=== PATIENT | female | born 1955 | race Caucasian/White ===

== ENCOUNTER 2018-05-01 10:51 | Emergency (ER) | payer BC ==
--- NOTE | 2018-05-01 11:37 | UC ---
Skin Complaint HPI - HPI Summary HPI Summary: Patient presents with one week onset burning sensation of her left side, it originated on her back and then began to radiate to her front. She states 2 days ago she developed a red, raised vesicular rash that are in circular clusters. She states pain was well controlled with Advil. - History of Current Complaint Chief Complaint: [facility] Time Seen by Provider: 05/01/18 11:21 Stated Complaint: RASH AND MID BACK PAIN Hx Obtained From: Patient ?: No Onset/Duration: Gradual Onset, Lasting Days Skin Exposure Onset/Duration: Days Ago Onset Severity: Moderate Current Severity: Mild Pain Intensity: 3 Location: Discrete Character: Redness, Raised, Painful Aggravating Factor(s): Touch Alleviating Factor(s): OTC Meds Associated Signs & Symptoms: Positive: Rash - Allergy/Home Medications Allergies/Adverse Reactions: Allergies Allergy/AdvReac Type Severity Reaction Status Date / Time No Known Allergies Allergy Verified 05/01/18 11:02 Home Medications: Home Medications Misc Supplements 05/01/18 [History] Review of Systems Constitutional: Negative Skin: Rash Eyes: Negative ENT: Negative Respiratory: Negative Cardiovascular: Negative Gastrointestinal: Negative Genitourinary: Negative Motor: Negative Neurovascular: Negative Musculoskeletal: Negative Neurological: Negative Psychological: Negative Is Patient Immunocompromised?: No All Other Systems Reviewed And Are Negative: Yes PMH/Surg Hx/FS Hx/Imm Hx Previously Healthy: Yes - Surgical History Surgical History: Yes Surgery Procedure, Year, and Place: tubal ligation - Family History Known Family History: Positive: Hypertension - Social History Occupation: Employed Full-time Lives: With Family Alcohol Use: Occasionally Substance Use Type: None Smoking Status (MU): Current Every Day Smoker Amount Used/How Often: 1/2 ppd Physical Exam Triage Information Reviewed: Yes Appearance: Well-Appearing Vital Signs: Initial Vital Signs Temp 98 F 05/01/18 10:56 Pulse 96 05/01/18 10:56 Resp 18 05/01/18 10:56 BP 160/101 05/01/18 10:56 Pulse Ox 99 05/01/18 10:56 Eye Exam: Normal ENT Exam: Normal Neck exam: Normal Neck: Positive: 1 Respiratory Exam: Normal Cardiovascular Exam: Normal Musculoskeletal Exam: Normal Neurological Exam: Normal Psychological Exam: Normal Skin: Positive: rashes - vesicular rash on left side with dematomal pattern, localized well defined red raised vesicles with well defined borders. Course/Dx - Course Course Of Treatment: Patient presents with complaints of painful rash on her left side x 5-7 days. 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 I did however RX Acyclovir and recommend she take this medication as it will shorten her viral course and prehaps minimize complcations. She states she will wait and if the rash gets worse she will go pick it up and take it. She was also referred to a PCP for follow up regarding her elevated BP. She was otherwise table and appropriate for out patient follow up. She verbalized understanding and in agreement with the discharge plan. - Differential Diagnoses - Skin Complaint Differential Diagnoses: Other - shingles - Diagnoses Provider Diagnoses: shingles Discharge - Sign-Out/Discharge Documenting (check all that apply): Patient Departure All imaging exams completed and their final reports reviewed: No Studies - Discharge Plan Condition: Stable Disposition: HOME Prescriptions: Acyclovir* [Zovirax 200 MG CAP*] 200 mg PO 5ID #50 cap Patient Education Materials: Shingles (ED) Referrals: No Primary Care Phys,NOPCP [Primary Care Provider] - Additional Instructions: I recommend you follow up with your PCP with-in 5 days. - Billing Disposition and Condition Condition: STABLE Disposition: Home - Attestation Statements Document Initiated by Moris: Margaret
[2018-05-01 11:43] VITALS: BP 170/94
== END 2018-05-01 11:40 | disposition home or self-care (01) ==
LOC: UCEAST 10:51
DX: B02.9 Zoster without complications (principal); F17.210 Nicotine dependence, cigarettes, uncomplicated
CPT/HCPCS: 99212; G0463